=== PATIENT | female | born 1930 | race Caucasian/White ===

== ENCOUNTER 2016-05-30 08:18 | Emergency (ER) | payer MEDICARE, OTHER ==
[~2016-05-30] VITALS: Ht 154.9 cm; Wt 110.0 kg
[~2016-05-30 08:18] MED LIST: ASPI-628 PO; ATEN50TA PO; CALC-755 PO; CHOL40003 PO; MULT-895 PO; OMPR20CCR PO
[2016-05-30 08:23] VITALS: BP 134/79; PULSE 100; RESP 18; O2SAT 97
--- NOTE | 2016-05-30 08:55 | ED.REPORT ---
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 In the past she has been worked up for similar pain without definitive diagnosis. Patient also reports nausea and decreased PO intake for the past three days. Nursing Notes Stated Complaint: BACK/NECK PAIN Chief Complaint: General Complaint Nursing Notes Reviewed: Yes Allergies: Coded Allergies: Penicillins (Verified Allergy, Mild, 03/24/14) Scheduled Aspirin (Aspir 81) 81 Mg Tablet.dr 81 MG PO every other day Atenolol (Atenolol) 50 Mg Tablet 50 MG PO DAILY Calcium Citrate/Vitamin D3 (Calcium Citrate - Vit D Caplet) 1 Each Tablet 1 EACH PO DAILY Cholecalciferol (Vitamin D3) (Vitamin D3) 4,000 Unit Capsule 4,000 UNIT PO DAILY Multivits W-Fe,Other Min/Lut (Centrum Silver Ultra Women Tab) 1 Each Tablet 1 EACH PO DAILY Scheduled PRN Omeprazole (Prilosec) 20 Mg Capcr 20 MG PO DAILY PRN PRN For Dyspepsia or Heartburn General Time Seen by MD: 08:54 Chief Complaint Other (Neck Pain) Hx Obtained From: Patient Arrived By: Walk-in Sudden in Onset?: No Onset Occurred: 1 week ago Symptom Duration: Since onset Location: : Arm left: Neck: Shoulder left Quality: Painful Severity: Current: Moderate Severity: Maximum: Moderate Associated with: Reports: Nausea Similar Sx Previous: Yes Past Medical History Past Medical History HTN GERD Anxiety Depression Gout Osteoporosis Past Surgical History 2 vertebroplasty Arthroplasty Reports: Appendectomy, Hysterectomy Reports: Tubal ligation Smoking History Unknown if Ever Smoker Social History Alcohol Use: Denies alcohol use Drug Use: Denies drug use Other Social History: Good social support Ambulatory Status Independent Review of Systems Full Review of Systems Constitutional: Denies: Chills, Fever GI: Reports: Nausea Musculoskeletal: Reports: Extremity pain (Left Arm), Joint pain (Left elbow), Neck pain, Denies: Back pain, Lumbar pain Complete sys rev & neg: except as marked. Physical Exam Vital Signs Vital Signs Date Time Temp Pulse Resp B/P Pulse Ox O2 Delivery O2 Flow Rate FiO2 05/30/16 10:19 22 104/40 97 Room Air 05/30/16 08:23 36.2 100 18 134/79 97 Initial VS: Reviewed Head / Eyes: Atraumatic, Normocephalic Abdomen / GI: Soft, Non-tender, No guarding, No rebound, No distention Skin: Warm, Dry, No cyanosis Neurologic: Alert, Oriented, Nonfocal Psychiatric: Mood/affect normal, Behavior normal, Normal thought content General/Constitutional: Awake, Alert, Well appearing, Well developed, Well nourished Neck: Supple, No meningismus, Full range of motion, No swelling, Non-tender, No midline vertebral tend, No masses Respiratory / Chest: Breath sounds NL, No respiratory distress, No rales, No rhonchi, No wheezing Cardiovascular: Heart rate NL, Regular rhythm, Heart sounds NL, Cap refill not delayed, Peripheral circulation NL Upper Extremities Upper Extremity / MS: No deformity, Neurologic intact, Vascular intact Left Shoulder: Positive: ROM reduced (Dramatically) Left Upper Arm: Positive: Tenderness present... (medial epicondyle) Interpretation & Diagnostics Lab Results Interpretation Result Diagram: 05/30/16 0942 05/30/16 0942 Test 05/30/16 09:42 White Blood Count 8.2th/mm3 (3.8-10.1) Red Blood Count 4.28mil/mm3 (3.90-5.20) Hemoglobin 13.2g/dL (12.0-15.6) Hematocrit 39.1% (35.0-46.0) Mean Corpuscular Volume 91.4fL (81-100) Mean Corpuscular Hemoglobin 30.8pg (27.0-35.0) Mean Corpuscular Hemoglobin Concent 33.8% (32.0-37.0) Red Cell Distribution Width 12.4% (12.3-15.4) Platelet Count 186bil/L (150-400) Neutrophils (%) (Auto) 87.4% (40-74) Lymphocytes (%) (Auto) 5.4% (14-46) Monocytes (%) (Auto) 7.1% (4-12) Eosinophils (%) (Auto) 0% (0-5) Basophils (%) (Auto) 0% (0-3) Erythrocyte Sedimentation Rate 53mm/hr (0-40) Sodium Level 133mEq/L (134-144) Potassium Level 3.8mEq/L (3.5-5.2) Chloride Level 96mEq/L (97-108) Carbon Dioxide Level 20mmol/L (18-29) Blood Urea Nitrogen 13mg/dL (8-27) Creatinine 0.61mg/dL (0.57-1.00) Estimat Glomerular Filtration Rate 134mL/min (>59) Glucose Level 129mg/dL (60-99) Calcium Level 8.5mg/dL (8.5-10.1) Total Bilirubin 0.8mg/dL (0.0-1.2) Aspartate Amino Transf (AST/SGOT) 19U/L (0-50) Alanine Aminotransferase (ALT/SGPT) 7U/L (0-32) Alkaline Phosphatase 63U/L (25-165) Troponin T 0.010ug/L (0.0-0.011) Total Protein 7.1g/dL (6.4-8.4) Albumin 3.6g/dL (3.4-5.0) ECG Interpretation ECG Interpretation: Sinus rhythm, rate 93 PAC Time: 09:29 Interpreted by: ED physician X-Ray Interpretation Xray Interpretation: IMPRESSION: 1. No fracture or dislocation. 2. Moderate to severe degenerative joint disease. 3. Superior migration of humeral head suggests rotator cuff tendinopathy. Dictated by: Teri Coleman M.D. on 05/30/2016 at 10:51 Approved by: Teri Coleman M.D. on 05/30/2016 at 11:00 X-Ray Ordered: Shoulder left Interpretation / Wet Read by: Interpret - Radiologist Xray Interpretation: IMPRESSION: 1. Possible old fracture with small corticated ossicle adjacent to the radial head. 2. Small elbow joint effusion. 3. Osteoarthritic changes. No bony erosion to suggest gouty arthritis. Dictated by: Teri Coleman M.D. on 05/30/2016 at 10:45 Approved by: Teri Coleman M.D. on 05/30/2016 at 10:51 X-Ray Ordered: Elbow left Interpretation / Wet Read by: Interpret - Radiologist Re-Eval/Medical Decision Source of Hx: Old records Time of Eval: 10:59 Re-Evaluation/Progress Note: Discussed lab and radiology results and plan to discharge. Patient is amenable to the plan. Return precautions given. All other questions addressed. Counseled Regarding: Diagnosis, Need for follow-up, When/why to return to ED Discharge & Departure Primary Impression: Left arm pain Disposition: Home Discharge Condition All VS Reviewed: Yes Condition: Stable Additional Instructions: Your workup today was reassuring. I do not believe that there is any dangerous cause for your symptoms at this time. Take Tylenol as directed for pain. Up to 2 Extra Strength Tylenol every 6 hours. Call your primary care provider to arrange a follow-up appointment in a few days if you are not feeling much better.. Return to the ER if you develop new or worsening pain, fever, chills, chest pain , shortness of breath, or any other concerning symptoms. Referrals: Karoline Carpenter (PCP) [place] Attestation Portions of this note were transcribed by Eri Vegas. I, Dr. Olivera, personally performed the history, physical exam and medical decision-making; I reviewed and confirmed the accuracy of the information in the transcribed note. Signed by: Dannielle Villafuerte, 05/30/2016 and 11:06 copies to: Karoline Carpenter Kirk H MD May 30, 2016 08:55 ERI VEGAS May 30, 2016 09:10
[2016-05-30] MEDS ORDERED: Ondansetron 2 mg/mL 2 mL Inj IVPUSH ONE (09:10)
[2016-05-30 09:52] LABS: BASOPHILS % (AUTO) 0 % (0-3); EOSINOPHILS % (AUTO) 0 % (0-5); MONOCYTES % (AUTO) 7.1 % (4-12); Mean Corpuscular Hemoglobin 30.8 pg (27.0-35.0); Mean Corpuscular Volume 91.4 fL (81-100); NEUTROPHILS % (AUTO) 87.4 % (40-74); Platelet Count 186 bil/L (150-400)
[2016-05-30 10:19] VITALS: BP 104/40; RESP 22; O2SAT 97
[2016-05-30 10:20] LABS: TROPONIN T 0.01 ug/L (0.0-0.011)
[2016-05-30 10:36] LABS: ERYTHROCYTE SEDIMENTATION RATE 53 mm/hr (0-40)
--- NOTE | 2016-05-30 10:52 | DRSVH ---
PROCEDURE: X-RAY LEFT ELBOW COMPLETE, MINIMUM THREE VIEWS ([id number]) INDICATIONS: Palpable pain. Patient has history of gout. TECHNIQUE: 3 views of the elbow were acquired. COMPARISON: None. FINDINGS: Bones: Corticated ossicle is noted adjacent to the radial head, probably old fracture fragment. No d islocations. There is joint space narrowing and osteophyte formation in elbow joint, consistent with moderate osteoarthritic changes. No suspicious bony lesions. Soft tissues: Suspect small elbow joint effusion. 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 IMPRESSION: 1. Possible old fracture with small corticated ossicle adjacent to the radial head. 2. Small elbow joint effusion. 3. Osteoarthritic changes. No bony erosion to suggest gouty arthritis. Dictated by: Teri Coleman M.D. on 05/30/2016 at 10:45 Approved by: Teri Coleman M.D. on 05/30/2016 at 10:51
--- NOTE | 2016-05-30 11:02 | DRSVH ---
PROCEDURE: X-RAY LEFT SHOULDER, MINIMUM TWO VIEWS ([id number]) INDICATIONS: Left shoulder pain radiating to the elbow. History of gout. TECHNIQUE: 3 views of the shoulder were acquired. COMPARISON: None. FINDINGS: Bones: No acute fractures or dislocations. Possible old distal clavicle fracture. Benign appearing sclerosis in the humeral head/neck junction may be bone islands. Visualized ribs appear intact. The re is severe acromioclavicular joint degeneration and moderate glenohumeral joint degeneration. No [place] erosions. Superior migration of humeral head suggests rotator cuff tendinopathy. Soft tissues: No suspicious soft tissue calcifications. IMPRESSION: 1. No fracture or dislocation. 2. Moderate to severe degenerative joint disease. 3. Superior migration of humeral head suggests rotator cuff tendinopathy. Dictated by: Teri Coleman M.D. on 05/30/2016 at 10:51 Approved by: Teri Coleman M.D. on 05/30/2016 at 11:00
[2016-05-30 11:43] VITALS: BP 128/60; PULSE 93; RESP 21; O2SAT 94
== END 2016-05-30 11:40 | disposition home or self-care (01) ==
LOC: SED 08:18
DX: M79.602 Pain in left arm (principal); R11.0 Nausea; I10 Essential (primary) hypertension; M19.90 Unspecified osteoarthritis, unspecified site; K21.9 Gastro-esophageal reflux disease without esophagitis; Z79.82 Long term (current) use of aspirin; Z88.0 Allergy status to penicillin
CPT/HCPCS: 36415; 73030; 73080; 80053; 84484; 85025; 85651; 93005; 96374; 99285; J2405